=== PATIENT | female | born 1960 | race Native Hawaiian/Other Pacific Islander ===

== ENCOUNTER 2023-02-09 20:11 | Emergency (ER) | payer OTHER ==
[~2023-02-09] VITALS: Ht 170.2 cm; Wt 728.0 kg
[2023-02-09 20:28] VITALS: TEMP 98.1
[2023-02-09 20:58] LABS: PLATELET COUNT 289 K/uL (152-353)
[2023-02-09 21:08] LABS: POTASSIUM 3.5 mmol/L (3.6-5.2)
[2023-02-10] VITALS: BP 164/69
[2023-02-10] MEDS ORDERED: AMIT25TA22 PO (08:15)
[2023-02-10] MEDS ORDERED: ASPIRIN81 M2 PO (08:16)
[2023-02-10] MEDS ORDERED: [UNRECOGNIZED DRUG - OTHER] PO (08:17)
[2023-02-10] MEDS ORDERED: BACLOFEN10 MG PO (08:18)
[2023-02-10] MEDS ORDERED: BIOTIN PO (08:19)
[2023-02-10] MEDS ORDERED: LYRICA225 MG PO (08:20)
[2023-02-10] MEDS ORDERED: ZESTRIL40 MG PO (08:20)
[2023-02-10] MEDS ORDERED: MINO10TA PO (08:21)
[2023-02-10] MEDS ORDERED: AMLODIPINE PO (08:22)
[2023-02-10] MEDS ORDERED: ROXICODONE15 M1 PO (08:23)
[2023-02-10] MEDS ORDERED: CLOP75TA2 PO (08:24)
[2023-02-10] MEDS ORDERED: ROPINIROLE0.5 MG PO (08:24)
[2023-02-10] MEDS ORDERED: LEVO0.08 PO (08:25)
[2023-02-10] MEDS ORDERED: TOPROL XL200 M1 PO (08:26)
[2023-02-10] MEDS ORDERED: VITAMIN D31000 UNI4 PO (08:26)
[2023-02-10] MEDS ORDERED: DICL1GEL2 TOP (08:28)
[2023-02-10] MEDS ORDERED: ZOLOFT25 MG PO (08:28)
== END 2023-02-10 | disposition still patient (30) ==
LOC: ED 20:11
PROVIDERS: Emergency Medicine
DX: F03.911 Unspecified dementia, unspecified severity, with agitation (principal); F32.A Depression, unspecified; I69.920 Aphasia following unspecified cerebrovascular disease; Z11.52 Encounter for screening for COVID-19; Z04.6 Encounter for general psychiatric examination, requested by authority
CPT/HCPCS: 36415; 80053; 81002; 85027; 87635; 93005; 99283; U0003